=== PATIENT | male | born 1945 | race Caucasian/White ===

== ENCOUNTER → 2021-01-25 13:48 | Outpatient (CLI) | payer OTHER, SELFPAY ==
[2021-01-26 13:58] LABS: COVID19 - ADMIT (NP swab/PCR) Negative (Negative)
== END ==
PROVIDERS: PCP Internal Medicine; Visit Provider Physician Assistant
DX: Z20.822 Contact with and (suspected) exposure to COVID-19 (principal)
CPT/HCPCS: U0003